=== PATIENT | female | born 1950 | race Caucasian/White ===

== ENCOUNTER 2016-08-27 11:35 | Day surgery (SDC) | payer BC ==
[~2016-08-27 11:35] MED LIST: Lactated Ringers 1,000 ML IV SCH; Lidocaine 1%/Sod Bicarbonate in NS 8.4% 1 ML Syringe PRN; Sodium Chloride 0.9% 10 ML Syringe FLUSH PRN
--- NOTE | 2016-08-27 12:14 | PCM.PREANE ---
Preanesthetic Assessment - Anesthesia/Transfusion/Family Hx Anesthesia History: No Prior Anesthesia Family History of Anesthesia Reaction: No Transfusion History: No Prior Transfusion(s) - Review of Systems General: No Symptoms Pulmonary: No Symptoms Cardiovascular: Dyspnea on Exertion Gastrointestinal: No symptoms Neurological: No Symptoms - Physical Assessment NPO Status Date: 08/27/16 NPO Status Time: 04:30 Pulse: 67 O2 Sat by Pulse Oximetry: 97 Respiratory Rate: 16 Blood Pressure: 163/83 Temperature: 36.7 C Height: 1.68 m Weight: 101.2 kg ASA Class: 2 Mental Status: Alert & Oriented x3 Airway Class: Mallampati = 2 Dentition: Reports: Dentures (upper) Thyro-Mental Finger Breadths: 3 Mouth Opening Finger Breadths: 3 ROM/Head Extension: Full Lungs: Clear to auscultation, Normal respiratory effort Cardiovascular: Regular Rate, Regular Rhythm - Lab Values: on chart - Imaging/EKG Impressions: EKG on chart - Allergies Allergies/Adverse Reactions: Allergies Allergy/AdvReac Type Severity Reaction Status Date / Time celecoxib [From Celebrex] Allergy Anaphylactic Verified 08/26/16 15:51 Shock nylon Allergy Itching Verified 08/26/16 15:51 prednisone Allergy Anaphylactic Verified 08/26/16 15:51 Shock Sulfa (Sulfonamide Allergy Anaphylactic Verified 08/26/16 15:51 Antibiotics) Shock amlodipine [From Norvasc] AdvReac palpitation Verified 08/26/16 16:33 s Fish Containing Products AdvReac Nausea and Verified 08/26/16 16:33 Vomiting - Anesthesia Plan Pre-Op Medication Ordered: Beta Iram Beta Iram: Atenolol Med Last Dose Date: 08/27/16 Med Last Dose Time: 08:00 - Acknowledgements Anesthesia Type Planned: MAC Pt an Appropriate Candidate for the Planned Anesthesia: Yes Alternatives and Risks of Anesthesia Discussed w Pt/Guardian: Yes Pt/Guardian Understands and Agrees with Anesthesia Plan: Yes PreAnesthesia Questionnaire Cardiovascular History: Reports: Heart murmur, High cholesterol, Hypertension Respiratory History: Reports: None Gastrointestinal History: Reports: Colon polyp, Hemorrhoids Genitourinary History: Reports: Renal calculus (2011), Other (see below) Other Genitourinary History: UTI, stress urinary incontinence SKEIN DYER History: Reports: Other (see below) Other OB/BYN History: uterine fibroid, atrophic vaginitis Neurological History: Reports: None Psychiatric History: Reports: None Endocrine/Metabolic History: Reports: Hypothyroidism Hematologic History: Reports: None Immunologic History: Reports: None Oncologic (Cancer) History: Reports: None Dermatologic History: Reports: None - Past Surgical History Head Surgeries/Procedures: Reports: None HEENT Surgical History: Reports: Tonsillectomy GI Surgical History: Reports: Colonoscopy, Other (see below) Other GI Surgeries/Procedures: sigmoidoscopy Female Surgical History: Reports: Hysterectomy Musculoskeletal Surgical History: Reports: Other (see below) Other Musculoskeletal Surgeries/Procedures:: carpal tunnel surgery, left total knee replacement - SUBSTANCE USE Smoking Status *Q: Never Smoker Tobacco Use Within Last Twelve Months: No Second Hand Smoke Exposure: No Days Per Week of Alcohol Use: 0 Number of Drinks Per Day: 1 Total Drinks Per Week: 0 - HOME MEDS Home Medications: Home Meds Acetaminophen [Tylenol Extra Strength] 1 - 2 tab PO Q6H PRN 08/26/16 [History] Atenolol [Atenolol] 50 mg PO DAILY 08/26/16 [History] Docusate Sodium [Colace] 100 mg PO DAILY 08/26/16 [History] Hydrochlorothiazide 12.5 mg PO DAILY 08/26/16 [History] Ibuprofen 1 - 3 cap PO Q6H 08/26/16 [History] Lactobacillus Acidophilus [Probiotic] 1 cap PO DAILY 08/26/16 [History] Levothyroxine [Synthroid] 100 mcg PO DAILY 08/26/16 [History] Pravastatin Sodium [Pravastatin Sodium] 20 mg PO DAILY 08/26/16 [History] Ramipril [Altace] 10 mg PO DAILY 08/26/16 [History] Sennosides [Senna] 1 - 2 tab PO DAILY PRN 08/26/16 [History] traMADol HCl [Tramadol HCl] 50 mg PO Q6H PRN 08/26/16 [History] - CURRENT (IN HOUSE) MEDS Current Meds: Current Medications Lactated Ringer's (Ringers, Lactated) 1,000 mls @ 125 mls/hr IV ASDIRECTED MARRY Stop: 08/27/16 23:00 Last Admin: 08/27/16 12:00 Dose: 125 mls/hr Lidocaine/Sodium Bicarbonate (Buffered Lidocaine 1% In Ns 8.4%) 0.25 ml .XX ONETIME PRN PRN Reason: Prior to IV Start Stop: 08/27/16 18:00 Last Admin: 08/27/16 12:00 Dose: 0.25 ml Sodium Chloride (Saline Flush) 10 ml FLUSH ASDIRECTED PRN PRN Reason: Keep Vein Open Stop: 08/27/16 18:00
[2016-08-27] MEDS ORDERED: Bacitracin Oint 15 GM Tube ONE (12:30)
[2016-08-27] MEDS ORDERED: Lidocaine 1% with EPINEPHrine 1:100,000 20 ML MDV ONE (12:30)
[2016-08-27] MEDS ORDERED: Bupivacaine 0.5%/EPINEPHrine 1:200,000 50 ML MDV ONE (12:30)
[2016-08-27] MEDS ORDERED: Lidocaine 1% 4 ML ONE (13:34)
[2016-08-27] MEDS ORDERED: fentaNYL 100 MCG/2 ML SDV ONE (13:34)
[2016-08-27] MEDS ORDERED: Propofol 200 MG/20 ML SDV ONE ×3 (13:34→14:47)
[2016-08-27] MEDS ORDERED: Lactated Ringers 1,000 ML ONE (14:22)
--- NOTE | 2016-08-27 14:58 | PCM.OPNOTE ---
- General Post-Op/Procedure Note Date of Surgery/Procedure: 08/27/16 Operative Procedure(s): Excision of multiple skin lesions, high-risk screening colonoscopy with hot snare polypectomy Pre Op Diagnosis: Multiple skin lesions, family history of melanoma, family history of colon cancer in brother and mother Post-Op Diagnosis: Multiple skin lesions, melanosis coli, mild diverticulosis, transverse colon polyp Anesthesia Technique: MAC Primary Surgeon: Elly Bettencourt Anesthesia Provider: Harry Delvalle Bit Sharpener: Jessica Sue Pathology: 1. Upper back lesion 2. Left upper chest lesions x2 3. Abdominal wall skin lesion 4. Transverse colon polyp Fluid Replacement, Intraop: 1,800 (mL crystalloid ) EBL in mLs: 5 Complications: None Condition: Good Free Text/Narrative:: INDICATION FOR PROCEDURE: The patient is a 65-year-old female who was referred to me by Dr. Kostas Wynne for evaluation for colonoscopy and removal of skin lesions. The patient has family history of colon cancer in two first degree relatives and a family history of melanoma in a first degree relative. Performing a high risk screening colonoscopy with excision of skin lesions and the associated risks of the procedure had been discussed with the patient. The patient found these risks acceptable and agreed to proceed. DESCRIPTION OF PROCEDURE: The patient was taken to the operating room and placed in the left lateral decubitus position. The patient's upper back lesion was initially excised. The area was prepped with chlorhexidine. Local anesthetic was injected after draping the area. An elliptical incision was then made excising the lesion and a small margin of surrounding tissue. The lesion measured approximately 0.8 cm x 0.5 cm. The ellipse measured 2 cm x 1 cm. Undermining was performed using a scalpel, measuring 1 cm circumferentially. The skin was then reapproximated using interrupted Ethilon suture. Attention was then turned to the patient's anterior chest lesions that were adjacent to one another. Both had a benign appearance. One appear more consistent with a skin tag. The area was prepped chlorhexidine. Local anesthetic was injected under both the lesions which were removed using a scalpel with less than 1 mm of surrounding normal tissue. They were sent as specimen in one container. Each lesion measured about 1 cm in size and was amputated just beneath its base. The excision sites were reapproximated using chromic suture. Finally, attention was then turned to a skin lesion present on the patient's upper abdomen. The area was prepped with chlorhexidine. The lesion which measured about 1 cm was then sharply excised, after injecting local anesthetic, with a scalpel. The skin was then reapproximated using chromic suture. Bacitracin and Band-Aids were applied over all of the areas of excision. After induction of adequate sedation, a digital rectal exam was performed which was unremarkable. An adult Olympus colonoscope was inserted into the rectum and guided under direct visualization to the appendiceal orifice and ileocecal valve. The scope was then slowly withdrawn through the colon. The quality of the prep was excellent. There was no evidence of angiodysplasias. There were very few small diverticulum in the sigmoid colon. There was mild melanosis coli. There was a small sessile polyp in the transverse colon which was removed using cold forceps. The scope was withdrawn into the rectum and retroflexed. There was no significant prominence of the patient's internal hemorrhoids. The scope was straightened, the colon was desufflated, and the scope was withdrawn. The patient was awakened from sedation and transferred to the recovery room in stable condition having tolerated the procedure well. POSTOPERATIVE PLAN: I discussed with the patient's daughter my intraoperative findings and recommendations. Due to the history of melanoma in her daughter and multiple pigmented skin lesions, I would recommend Dermatology referral for a full body skin check and this has been placed. We will send a letter regarding her pathology and timing of her next colonoscopy.
[2016-08-27 15:58] VITALS: BP 144/70
== END 2016-08-27 15:45 | disposition home or self-care (01) ==
LOC: JD.SDS 11:35
PROVIDERS: ATTEND Surgery
DX: D12.3 Benign neoplasm of transverse colon (principal); L82.1 Other seborrheic keratosis; L91.8 Other hypertrophic disorders of the skin; D23.5 Other benign neoplasm of skin of trunk; K64.4 Residual hemorrhoidal skin tags; E78.2 Mixed hyperlipidemia; I10 Essential (primary) hypertension; E03.9 Hypothyroidism, unspecified; K63.89 Other specified diseases of intestine; K57.30 Diverticulosis of large intestine without perforation or abscess without bleeding; Z88.2 Allergy status to sulfonamides; Z88.8 Allergy status to other drugs, medicaments and biological substances; Z91.013 Allergy to seafood; Z91.09 Other allergy status, other than to drugs and biological substances
CPT/HCPCS: 11404; 45385; 88305; A9270; J3010; J7120; 00400; J2704

== ENCOUNTER 2018-06-28 07:45 | Inpatient (IN) | payer OTHER, BC ==
[~2018-06-28 07:45] MED LIST changes: +Acetaminophen 325 MG Tab PO SCH; +EPINEPHrine 1 MG/ML SDV ONE; +Ketorolac 15 MG/ML SDV IVPUSH PRN; -Lactated Ringers 1,000 ML IV SCH; +Lidocaine 1%/Sod Bicarbonate in NS 8.4% 1 ML Syringe IDERM PRN; -Lidocaine 1%/Sod Bicarbonate in NS 8.4% 1 ML Syringe PRN; +Pregabalin 25 MG Cap PO SCH; +Ropivacaine 0.5% 5 MG/ML 30 ML SDV ONE; +oxyCODONE ER 10 MG TAB.ER PO SCH
[2018-06-28] MEDS: Lactated Ringers 1,000 ML IV SCH ×2 (08:30→12:11)
--- NOTE | 2018-06-28 08:47 | PCM.PREANE ---
Preanesthetic Assessment - Anesthesia/Transfusion/Family Hx Anesthesia History: Prior Anesthesia Without Reaction Family History of Anesthesia Reaction: No Transfusion History: No Prior Transfusion(s) - Review of Systems General: No Symptoms Pulmonary: No Symptoms Cardiovascular: Dyspnea on Exertion Gastrointestinal: No Symptoms Neurological: No Symptoms Other: Reports: Thyroid Problems (hhypothyroid) - Physical Assessment NPO Status Date: 06/27/18 NPO Status Time: 00:00 Pulse: 64 O2 Sat by Pulse Oximetry: 97 Respiratory Rate: 16 Blood Pressure: 163/45 Temperature: 37.3 C Vital Signs: Last Vital Signs Temp 37.3 C 06/28/18 08:05 Pulse 64 06/28/18 08:05 Resp 16 06/28/18 08:05 BP 163/75 H 06/28/18 08:05 Pulse Ox 97 06/28/18 08:05 Height: 1.68 m Weight: 103.419 kg ASA Class: 2 Mental Status: Alert & Oriented x3 Dentition: Reports: Dentures (top) Thyro-Mental Finger Breadths: 2 Mouth Opening Finger Breadths: 3 ROM/Head Extension: Full Lungs: Clear to Auscultation, Normal Respiratory Effort Cardiovascular: Regular Rate, Regular Rhythm - Lab Values: Laboratory Last Values MRSA (PCR) Negative 06/08/18 15:53 - Imaging/EKG Impressions: EKG SR on chart - Allergies Allergies/Adverse Reactions: Allergies Allergy/AdvReac Type Severity Reaction Status Date / Time celecoxib [From Celebrex] Allergy Anaphylactic Verified 06/27/18 18:32 Shock nylon Allergy Itching Verified 06/27/18 18:32 prednisone Allergy Anaphylactic Verified 06/27/18 18:32 Shock Sulfa (Sulfonamide Allergy Anaphylactic Verified 06/27/18 18:32 Antibiotics) Shock suture Allergy Itching Verified 06/27/18 18:32 amlodipine [From Norvasc] AdvReac palpitation Verified 06/27/18 18:32 s Fish Containing Products AdvReac Nausea and Verified 06/27/18 18:32 Vomiting - Anesthesia Plan Pre-Op Medication Ordered: Beta Iram Beta Iram: Acebutolol Med Last Dose Date: 06/28/18 Med Last Dose Time: 06:00 - Acknowledgements Anesthesia Type Planned: Spinal Pt an Appropriate Candidate for the Planned Anesthesia: Yes Alternatives and Risks of Anesthesia Discussed w Pt/Guardian: Yes Pt/Guardian Understands and Agrees with Anesthesia Plan: Yes PreAnesthesia Questionnaire HEENT History: Reports: Impaired Vision, Other (See Below) Other HEENT History: has upper denture, wears glasses Cardiovascular History: Reports: Heart Murmur, High Cholesterol, Hypertension Respiratory History: Reports: None Gastrointestinal History: Reports: Colon Polyp, Diverticulosis, Hemorrhoids, Other (See Below) Other Gastrointestinal History: melanosis coli Genitourinary History: Reports: Renal Calculus, Other (See Below) Other Genitourinary History: UTI, stress urinary incontinence, uterine fibroid, atrophic vaginitis [employer] History: Reports: Other (See Below) Other OB/BYN History: uterine fibroid, atrophic vaginitis Neurological History: Reports: None Psychiatric History: Reports: None Endocrine/Metabolic History: Reports: Hypothyroidism Hematologic History: Reports: None Immunologic History: Reports: None Oncologic (Cancer) History: Reports: None Dermatologic History: Reports: None - Past Surgical History Head Surgeries/Procedures: Reports: None HEENT Surgical History: Reports: Tonsillectomy Cardiovascular Surgical History: Reports: None Respiratory Surgical History: Reports: None GI Surgical History: Reports: Colonoscopy, Other (See Below) Other GI Surgeries/Procedures: sigmoidoscopy Female Surgical History: Reports: Hysterectomy Male Surgical History: Reports: None Endocrine Surgical History: Reports: None Musculoskeletal Surgical History: Reports: Carpal Tunnel, Knee Replacement, Other (See Below) Other Musculoskeletal Surgeries/Procedures:: carpal tunnel surgery, left total knee replacement Oncologic Surgical History: Reports: None Dermatological Surgical History: Reports: Other (See Below) - SUBSTANCE USE Smoking Status *Q: Never Smoker Tobacco Use Within Last Twelve Months: No Second Hand Smoke Exposure: No Days Per Week of Alcohol Use: 0 Number of Drinks Per Day: 0 Total Drinks Per Week: 0 Recreational Drug Use History: No - HOME MEDS Home Medications: Home Meds Acetaminophen [Tylenol Extra Strength] 1 - 2 tab PO Q6H PRN 08/26/16 [History] Atenolol 50 mg PO DAILY 08/26/16 [History] Docusate Sodium [Colace] 200 mg PO DAILY 08/26/16 [History] Hydrochlorothiazide 12.5 mg PO DAILY 08/26/16 [History] Ibuprofen 1 - 3 cap PO Q6H 08/26/16 [History] Lactobacillus Acidophilus [Probiotic] 1 cap PO DAILY 08/26/16 [History] Levothyroxine [Synthroid] 100 mcg PO DAILY 08/26/16 [History] Ramipril [Altace] 10 mg PO DAILY 08/26/16 [History] traMADol HCl [Tramadol HCl] 50 mg PO Q6H PRN 08/26/16 [History] Ketoconazole 1 dose TOP Q48H PRN 06/27/18 [History] Methylcellulose [Citrucel] 1,000 mg PO DAILY 06/27/18 [History] Rosuvastatin Calcium 20 mg PO DAILY 06/27/18 [History] Sennosides [Senna] 17.2 mg PO DAILY 06/27/18 [History] - CURRENT (IN HOUSE) MEDS Current Meds: Current Medications Acetaminophen (Tylenol) 975 mg PO ONETIME [facility] Stop: 06/28/18 14:00 Aspirin (Ecotrin) 325 mg PO BID MARRY Bisacodyl (Dulcolax) 5 mg PO DAILY PRN PRN Reason: Constipation Morphine Sulfate 8 mg/Epinephrine HCl 0.3 mg/Cefuroxime Sodium 750 mg/Sodium Chloride 28.9 ml 0 mg .XX ONETIME ONE Stop: 06/28/18 10:01 Cyclobenzaprine HCl (Flexeril) 10 mg PO TID PRN PRN Reason: Spasms Docusate Sodium (Colace) 100 mg PO BID MARRY Famotidine (Pepcid) 20 mg PO Q12H [facility] Lactated Ringer's (Ringers, Lactated) 1,000 mls @ 125 mls/hr IV ASDIRECTED [facility] Stop: 06/28/18 23:00 Cefazolin Sodium/Dextrose 2 gm (/ Premix) 50 mls @ 100 mls/hr IV Q8H [facility] Stop: 06/28/18 23:44 Lidocaine/Sodium Bicarbonate (Buffered Lidocaine 1% In Ns 8.4%) 0.25 ml IDERM ONETIME PRN PRN Reason: Prior to IV Start Stop: 06/28/18 18:00 Magnesium Hydroxide (Milk Of Magnesia) 30 ml PO BID PRN PRN Reason: Constipation Morphine Sulfate (Morphine) 2 mg IVPUSH Q2H PRN PRN Reason: Breakthrough Pain Naloxone HCl (Narcan) 0.1 mg IVPUSH Q5M PRN PRN Reason: Oversedation Ondansetron HCl (Zofran) 4 mg IVPUSH Q6H PRN PRN Reason: Nausea/Vomiting Oxycodone HCl (Oxycontin) 10 mg PO ONETIME [facility] Stop: 06/28/18 14:00 Oxycodone/Acetaminophen (Percocet 325-5 Mg) 1 - 2 tab PO Q4H PRN PRN Reason: Pain Pregabalin (Lyrica) 50 mg PO ONETIME [facility] Stop: 06/28/18 14:00 Senna (Senna) 8.6 mg PO BID PRN PRN Reason: Constipation Sodium Chloride (Saline Flush) 10 ml FLUSH ASDIRECTED PRN PRN Reason: Keep Vein Open Stop: 06/28/18 18:00 Discontinued Medications Bupivacaine HCl (Marcaine 0.25%) Confirm Administered Dose 30 ml .ROUTE .STK- MED ONE Stop: 06/28/18 08:38 Cefazolin Sodium (Ancef) Confirm Administered Dose 2 gm .ROUTE .STK-MED ONE Stop: 06/28/18 08:38 Epinephrine HCl (Adrenalin) Confirm Administered Dose 1 mg .ROUTE .STK-MED ONE Stop: 06/28/18 05:50 Iodine (Iodine 2% Mild Tincture) Confirm Administered Dose 30 ml .ROUTE .STK- MED ONE Stop: 06/28/18 08:38 Ropivacaine (Naropin 0.5%) Confirm Administered Dose 30 ml .ROUTE .STK-MED ONE Stop: 06/28/18 05:50 Tranexamic Acid (Cyklokapron) Confirm Administered Dose 1,000 mg .ROUTE .STK- MED ONE Stop: 06/28/18 08:37 Vancomycin HCl (Vancomycin) Confirm Administered Dose 1 gm .ROUTE .STK-MED ONE Stop: 06/28/18 08:37
[2018-06-28] MEDS ORDERED: Ondansetron 4 MG/2 ML SDV ONE (09:09)
[2018-06-28] MEDS ORDERED: fentaNYL 100 MCG/2 ML SDV ONE (09:10)
[2018-06-28] MEDS ORDERED: Midazolam 1 MG/ML 2 ML SDV ONE (09:10)
[2018-06-28] MEDS ORDERED: Propofol 200 MG/20 ML SDV ONE ×3 (09:10→11:17)
[2018-06-28] MEDS ORDERED: ceFAZolin 1 GM Vial ONE (09:11)
[2018-06-28] MEDS ORDERED: Lactated Ringers 1,000 ML ONE (10:24)
[2018-06-28] MEDS ORDERED: Lidocaine 1% 4 ML ONE (10:24)
[2018-06-28] MEDS: Bupivacaine 0.25% 30 ML SDV ONE ×2 (10:58→11:22)
[2018-06-28] MEDS: ceFAZolin 1 GM Vial ONE ×2 (10:59→11:20)
[2018-06-28] MEDS: Iodine/Sodium Iodide 2% Tincture 30 ML Bottle ONE ×2 (10:59→11:16)
[2018-06-28] MEDS: Morphine 8 MG, EPINEPHrine 0.3 MG, Cefuroxime 750 MG, Sodium Chloride 0.9% 28.9 ML ONE ×8 (11:00→11:23)
[2018-06-28] MEDS: Vancomycin 1 GM SDV ONE ×2 (11:01→11:25)
[2018-06-28] MEDS ORDERED: Magnesium Hydroxide 400 MG/5 ML Susp 30 ML Cup PO PRN (12:00)
[2018-06-28] MEDS ORDERED: Ondansetron 4 MG/2 ML SDV IVPUSH PRN (12:00)
[2018-06-28] MEDS ORDERED: Morphine 2 MG/ML Syringe IVPUSH PRN (12:00)
[2018-06-28] MEDS ORDERED: Bisacodyl 5 MG Tab PO PRN (12:00)
[2018-06-28] MEDS ORDERED: fentaNYL 100 MCG/2 ML SDV IVPUSH PRN (12:00)
[2018-06-28] MEDS ORDERED: Naloxone 0.4 MG/ML SDV IVPUSH PRN (12:00)
[2018-06-28] MEDS ORDERED: Sennosides 8.6 MG Tab PO PRN (12:00)
--- NOTE | 2018-06-28 12:02 | PCM.POSTAN ---
POST ANESTHESIA ASSESSMENT - MENTAL STATUS Mental Status: Alert, Oriented - VITAL SIGNS Pulse Rate: 66 SaO2: 94 Resp Rate: 10 Blood Pressure: 110/63 Temperature: 36.6 C - RESPIRATORY Respiratory Status: Respiratory Rate WNL, Airway Patent, O2 Saturation Stable, Supplemental Oxygen - CARDIOVASCULAR CV Status: Pulse Rate WNL, Blood Pressure Stable - GASTROINTESTINAL GI Status: No Symptoms - PAIN Pain Score: 0 - POST OP HYDRATION Hydration Status: Adequate & Stable - OBSERVATIONS Free Text/Narrative:: no anesthesia complications noted
--- NOTE | 2018-06-28 12:57 | CR ---
Right knee: AP and lateral views of the right knee were obtained. Comparison: Previous right knee exam of 05/05/11. Knee prosthesis is seen. Components are aligned. Underlying bony structures are intact. No fracture or other abnormality is seen. Incidental soft tissue air is noted. Impression: 1. Satisfactory appearance of recently placed right knee prosthesis. Diagnostic code #2
[2018-06-28] MEDS: Acetaminophen/oxyCODONE 325-5 MG Tab PO PRN ×4 (13:56→21:42)
[2018-06-28] MEDS ORDERED: KETOCONAZOLE TOP PRN (14:45)
[2018-06-28] MEDS: ceFAZolin 2 GM in Premix Bag 1 BAG IV SCH (17:18)
--- NOTE | 2018-06-28 17:30 | PCM.CONS ---
H&P History of Present Illness - General Date of Service: 06/28/18 Admit Problem/Dx: Admission Diagnosis/Problem Admission Diagnosis/Problem Osteoarthritis of knee Source of Information: Patient, Provider History Limitations: Reports: No Limitations - History of Present Illness Initial Comments - Free Text/Narative: Amee is an 67 yo female patient of Dr. Mcclendon who is post-operative day 0 of R TKA. Hospital medicine was consulted for post-operative medical care. At this time she is stable. Pain is controlled; 6/10 at its worst. She denies any chest pain, shortness of breath, palpitations, nausea, vomiting. She carries a history of: HTN, HLD, Hypothyroidism, Renal stone, Stress incontinence, Diverticulosis, Cardiac Murmur. She is a full code. Her PCP is Dr. Wynne. Not a smoker. Right Knee Pain Score (Numeric/FACES): 6 - Related Data Allergies/Adverse Reactions: Allergies Allergy/AdvReac Type Severity Reaction Status Date / Time celecoxib [From Celebrex] Allergy Anaphylactic Verified 06/27/18 18:32 Shock nylon Allergy Itching Verified 06/27/18 18:32 prednisone Allergy Anaphylactic Verified 06/27/18 18:32 Shock Sulfa (Sulfonamide Allergy Anaphylactic Verified 06/27/18 18:32 Antibiotics) Shock suture Allergy Itching Verified 06/27/18 18:32 amlodipine [From Norvasc] AdvReac palpitation Verified 06/27/18 18:32 s Fish Containing Products AdvReac Nausea and Verified 06/27/18 18:32 Vomiting Home Medications: Home Meds Atenolol 50 mg PO DAILY 08/26/16 [History] Docusate Sodium [Colace] 200 mg PO DAILY 08/26/16 [History] Hydrochlorothiazide 12.5 mg PO DAILY 08/26/16 [History] Lactobacillus Acidophilus [Probiotic] 1 cap PO DAILY 08/26/16 [History] Levothyroxine [Synthroid] 100 mcg PO DAILY 08/26/16 [History] Ramipril [Altace] 10 mg PO DAILY 08/26/16 [History] Ketoconazole 1 dose TOP Q48H PRN 06/27/18 [History] Rosuvastatin Calcium 20 mg PO DAILY 06/27/18 [History] Sennosides [Senna] 17.2 mg PO DAILY 06/27/18 [History] Acetaminophen/oxyCODONE [Percocet 325-5 MG] 1 - 2 tab PO Q6H PRN #60 tablet [Rx] Aspirin [Aspirin EC] 325 mg PO BID #84 tablet. 06/28/18 [Rx] Bisacodyl [Dulcolax] 5 mg PO DAILY PRN tablet 06/28/18 [Rx] Cyclobenzaprine [Flexeril] 10 mg PO TID PRN #40 tablet 06/28/18 [Rx] Famotidine [Pepcid] 20 mg PO Q12H tablet 06/28/18 [Rx] Magnesium Hydroxide [Milk of Magnesia] 30 ml PO BID PRN cup 06/28/18 [Rx] Past Medical History HEENT History: Reports: Impaired Vision, Other (See Below) Other HEENT History: has upper denture, wears glasses Cardiovascular History: Reports: Heart Murmur, High Cholesterol, Hypertension Respiratory History: Reports: None Gastrointestinal History: Reports: Colon Polyp, Diverticulosis, Hemorrhoids, Other (See Below) Other Gastrointestinal History: melanosis coli Genitourinary History: Reports: Renal Calculus, Other (See Below) Other Genitourinary History: UTI, stress urinary incontinence, uterine fibroid, atrophic vaginitis [employer] History: Reports: Other (See Below) Other OB/BYN History: uterine fibroid, atrophic vaginitis Neurological History: Reports: None Psychiatric History: Reports: None Endocrine/Metabolic History: Reports: Hypothyroidism Hematologic History: Reports: None Immunologic History: Reports: None Oncologic (Cancer) History: Reports: None Dermatologic History: Reports: None - Infectious Disease History Infectious Disease History: Reports: Chicken Pox, Measles, Mumps - Past Surgical History Head Surgeries/Procedures: Reports: None HEENT Surgical History: Reports: Tonsillectomy Cardiovascular Surgical History: Reports: None Respiratory Surgical History: Reports: None GI Surgical History: Reports: Colonoscopy, Other (See Below) Other GI Surgeries/Procedures: sigmoidoscopy Female Surgical History: Reports: Hysterectomy Male Surgical History: Reports: None Endocrine Surgical History: Reports: None Musculoskeletal Surgical History: Reports: Carpal Tunnel, Knee Replacement, Other (See Below) Other Musculoskeletal Surgeries/Procedures:: carpal tunnel surgery, left total knee replacement Oncologic Surgical History: Reports: None Dermatological Surgical History: Reports: Other (See Below) Social & Family History - Family History Family Medical History: Noncontributory - Tobacco Use Smoking Status *Q: Never Smoker Second Hand Smoke Exposure: No - Caffeine Use Caffeine Use: Reports: Coffee, Soda - Alcohol Use Days Per Week of Alcohol Use: 0 Number of Drinks Per Day: 0 Total Drinks Per Week: 0 - Recreational Drug Use Recreational Drug Use: No H&P Review of Systems - Review of Systems: Review Of Systems: See Below General: Reports: No Symptoms. Denies: Fever, Chills HEENT: Reports: No Symptoms Pulmonary: Reports: No Symptoms. Denies: Shortness of Breath, Cough Cardiovascular: Reports: No Symptoms. Denies: Chest Pain Gastrointestinal: Reports: No Symptoms. Denies: Abdominal Pain, Diarrhea, Nausea, Vomiting Genitourinary: Reports: No Symptoms Musculoskeletal: Reports: No Symptoms Skin: Reports: No Symptoms Psychiatric: Reports: No Symptoms Neurological: Reports: No Symptoms Hematologic/Lymphatic: Reports: No Symptoms Immunologic: Reports: No Symptoms Exam - Exam Exam: See Below - Vital Signs Vital Signs: Last Vital Signs Temp 97.2 F 06/28/18 12:45 Pulse 66 06/28/18 12:01 Resp 14 06/28/18 12:45 BP 137/74 06/28/18 12:45 Pulse Ox 92 L 06/28/18 12:45 Weight: 228 lb - Exam Quality Assessment: Supplemental Oxygen (1L NC), DVT Prophylaxis General: Alert, Oriented, Cooperative HEENT: Conjunctiva Clear, EACs Clear, EOMI, Hearing Intact, Mucosa Moist & [place] , Nares Patent, Normal Nasal Septum, Posterior Pharynx Clear, PERRLA Neck: Supple, Trachea Midline, 2 Lungs: Clear to Auscultation, Normal Respiratory Effort Cardiovascular: Regular Rate, Regular Rhythm GI/Abdominal Exam: Normal Bowel Sounds, Soft, Non-Tender, No Organomegaly, No Distention, No Abnormal Bruit, No Mass, Pelvis Stable (Female) Exam: Deferred Rectal (Female) Exam: Deferred Back Exam: Normal Inspection Extremities: Normal Inspection, Non-Tender, No Pedal Edema, Normal Capillary Refill, Limited Range of Motion Peripheral Pulses: 2+: Posterior Tibial (L), Posterior Tibial (R), Dorsalis Pedis (L), Dorsalis Pedis (R) Skin: Warm, Dry, Intact, Other (bandage dry and intact) Neurological: Cranial Nerves Intact (grossly), Strength Equal Bilateral Neuro Extensive - Mental Status: Alert, Oriented x3, Normal Mood/Affect, Normal Cognition, Memory Intact Psychiatric: Alert, Normal Affect, Normal Mood - Patient Data Lab Results Last 24 hrs: Laboratory Results - last 24 hr 06/28/18 Range/Units 08:20 APTT 32 H (24-31) SECONDS Consult PN Assessment/Plan POD#: 0 Procedures: Procedures CARDIOVASCULAR STRESS TEST (06/18/18) COLONOSCOPY W/LESION REMOVAL (08/27/16) EXC TR-EXT B9+CARLOS ENRIQUE 3.1-4 CM (08/27/16) HT MUSCLE IMAGE SPECT MULT (06/18/18) TISSUE EXAM BY PATHOLOGIST (08/27/16) (1) S/P total knee arthroplasty SNOMED Code(s): 8849663535980, 912659862, 0360266654630 Code(s): Z96.659 - PRESENCE OF UNSPECIFIED ARTIFICIAL KNEE JOINT Current Visit: Yes Qualifiers: Laterality: right Qualified Code(s): Z96.651 - Presence of right artificial knee joint Problem List Initiated/Reviewed/Updated: Yes Plan: I/P: Acute: S/P R total knee arthoplasty- post-operative day 0 -DVT prophylaxis and pain management per primary care team -PT/OT -IS/RT -Monitor oxygen saturation -Titrate oxygen as needed -Vital signs stable -Monitor labs: -Hgb 12.4 -GFR 84 Osteoarthritis -Pain management per primary team Chronic: HTN HLD Hypothyroidism Renal stone Stress incontinence Diverticulosis Cardiac Murmur Plan: CM for discharge planning Routine AM labs GI/DVT/PE prophylaxis Home medications as indicated Other orders as listed above Routine AM labs She is a full code. PCP is Dr. Wynne. Thank you for allowing us to participate in the care of this patient!
[2018-06-28] MEDS ORDERED: Sennosides 8.6 MG Tab PO SCH (18:45)
[2018-06-28] MEDS ORDERED: Docusate Sodium 100 MG Cap PO SCH ×2 (18:45→21:00)
[2018-06-28] MEDS: Docusate Sodium 100 MG Cap PO SCH (19:55)
[2018-06-28] MEDS: Cyclobenzaprine 10 MG Tab PO PRN (19:55)
[2018-06-28] MEDS: Sennosides 8.6 MG Tab PO SCH (19:55)
[2018-06-28] MEDS: Famotidine 20 MG Tab PO SCH (21:41)
[2018-06-29] MEDS: ceFAZolin 2 GM in Premix Bag 1 BAG IV SCH ×2 (00:46→09:54)
[2018-06-29] MEDS: Acetaminophen/oxyCODONE 325-5 MG Tab PO PRN ×3 (01:08→09:01)
[2018-06-29] MEDS: Cyclobenzaprine 10 MG Tab PO PRN (04:55)
[2018-06-29] MEDS ORDERED: Levothyroxine 100 MCG Tab PO SCH (06:00)
--- NOTE | 2018-06-29 06:57 | PCM.CONSN ---
- General Info Date of Service: 06/29/18 Admission Dx/Problem (Free Text): Admission Diagnosis/Problem Admission Diagnosis/Problem Osteoarthritis of knee Functional Status: Reports: Pain Controlled, Tolerating Diet, Ambulating, Urinating, Incentive Spirometry. Denies: New Symptoms - Review of Systems General: Reports: No Symptoms. Denies: Fever, Malaise, Chills HEENT: Reports: No Symptoms. Denies: Headaches, Sore Throat Pulmonary: Reports: No Symptoms. Denies: Shortness of Breath, Pleuritic Chest Pain, Cough, Sputum, Wheezing Cardiovascular: Reports: No Symptoms. Denies: Chest Pain, Palpitations, Dyspnea on Exertion, Lightheadedness Gastrointestinal: Reports: No Symptoms. Denies: Abdominal Pain, Constipation, Diarrhea, Nausea, Vomiting Genitourinary: Reports: No Symptoms. Denies: Pain Musculoskeletal: Reports: Leg Pain Skin: Reports: No Symptoms. Denies: Cyanosis Neurological: Reports: No Symptoms. Denies: Confusion Psychiatric: Reports: No Symptoms - Patient Data Vitals - Most Recent: Last Vital Signs Temp 98.6 F 06/29/18 04:18 Pulse 79 06/29/18 04:18 Resp 18 06/29/18 04:18 BP 130/49 L 06/29/18 04:18 Pulse Ox 89 L 06/29/18 04:18 Weight - Most Recent: 230 lb 14.4 oz I&O - Last 24 Hours: Intake & Output 06/28/18 06/28/18 06/29/18 14:59 22:59 06:59 Intake Total 590 155 8395 Output Total 75 700 Balance 185 800 450 Lab Results Last 24 Hours: Laboratory Results - last 24 hr 06/28/18 06/29/18 Range/Units 08:20 06:15 WBC 8.22 (3.98-10.04) K/mm3 RBC 3.96 L (3.98-5.22) M/mm3 Hgb 11.4 (11.2-15.7) gm/L Hct 35.4 (34.1-44.9) % MCV 89.4 (79.4-94.8) fl MCH 28.8 (25.6-32.2) pg MCHC 32.2 (32.2-35.5) g/dl RDW Std Deviation 41.4 (36.4-46.3) fL Plt Count 196 (182-369) K/mm3 MPV 9.4 (9.4-12.3) fl APTT 32 H (24-31) SECONDS Med Orders - Current: Current Medications Aspirin (Ecotrin) 325 mg PO BID [facility] Atenolol (Tenormin) 50 mg PO DAILY [facility] Bisacodyl (Dulcolax) 5 mg PO DAILY PRN PRN Reason: Constipation Cyclobenzaprine HCl (Flexeril) 10 mg PO TID PRN PRN Reason: Spasms Last Admin: 06/29/18 04:55 Dose: 10 mg Docusate Sodium (Colace) 200 mg PO DAILY [facility] Last Admin: 06/28/18 19:55 Dose: 200 mg Famotidine (Pepcid) 20 mg PO Q12H [facility] Last Admin: 06/28/18 21:41 Dose: 20 mg Hydrochlorothiazide (Hydrochlorothiazide) 12.5 mg PO DAILY [facility] Cefazolin Sodium/Dextrose 2 gm (/ Premix) 50 mls @ 100 mls/hr IV Q8H [facility] Stop: 06/29/18 09:44 Last Admin: 06/29/18 00:46 Dose: 100 mls/hr Levothyroxine Sodium (Synthroid) 100 mcg PO ACBREAKFAST [facility] Last Admin: 06/29/18 06:11 Dose: 100 mcg Lisinopril (Prinivil) 20 mg PO DAILY [facility] Magnesium Hydroxide (Milk Of Magnesia) 30 ml PO BID PRN PRN Reason: Constipation Morphine Sulfate (Morphine) 2 mg IVPUSH Q2H PRN PRN Reason: Breakthrough Pain Naloxone HCl (Narcan) 0.1 mg IVPUSH Q5M PRN PRN Reason: Oversedation Ondansetron HCl (Zofran) 4 mg IVPUSH Q6H PRN PRN Reason: Nausea/Vomiting Last Admin: 06/28/18 13:56 Dose: 4 mg Oxycodone/Acetaminophen (Percocet 325-5 Mg) 1 - 2 tab PO Q4H PRN PRN Reason: Pain Last Admin: 06/29/18 04:54 Dose: 1 tab Rosuvastatin Calcium (Crestor) 20 mg PO DAILY [facility] Saccharomyces Boulardii (Florastor) 250 mg PO DAILY [facility] Senna (Senna) 17.2 mg PO DAILY [facility] Last Admin: 06/28/18 19:55 Dose: 17.2 mg Discontinued Medications Acetaminophen (Tylenol) 975 mg PO ONETIME [facility] Stop: 06/28/18 14:00 Last Admin: 06/28/18 08:55 Dose: 975 mg Bupivacaine HCl (Marcaine 0.25%) Confirm Administered Dose 30 ml .ROUTE .STK- MED ONE Stop: 06/28/18 08:38 Last Admin: 06/28/18 11:22 Dose: 30 ml Cefazolin Sodium (Ancef) Confirm Administered Dose 2 gm .ROUTE .STK-MED ONE Stop: 06/28/18 08:38 Last Admin: 06/28/18 11:20 Dose: 2 gm Cefazolin Sodium (Ancef) Confirm Administered Dose 2 gm .ROUTE .STK-MED ONE Stop: 06/28/18 09:12 Morphine Sulfate 8 mg/Epinephrine HCl 0.3 mg/Cefuroxime Sodium 750 mg/Sodium Chloride 28.9 ml 0 mg .XX ONETIME ONE Stop: 06/28/18 10:01 Last Admin: 06/28/18 11:23 Dose: 758.3 mg Docusate Sodium (Colace) 100 mg PO BID [facility] Epinephrine HCl (Adrenalin) Confirm Administered Dose 1 mg .ROUTE .STK-MED ONE Stop: 06/28/18 05:50 Fentanyl (Sublimaze) Confirm Administered Dose 100 mcg .ROUTE .STK-MED ONE Stop: 06/28/18 09:11 Fentanyl (Sublimaze) 50 mcg IVPUSH Q5M PRN PRN Reason: Pain Stop: 06/28/18 16:00 Lactated Ringer's (Ringers, Lactated) 1,000 mls @ 125 mls/hr IV ASDIRECTED [facility] Stop: 06/28/18 23:00 Last Admin: 06/28/18 12:11 Dose: 125 mls/hr Lidocaine HCl (Xylocaine-Mpf 1%) Confirm Administered Dose 4 mls @ as directed .ROUTE .STK-MED ONE Stop: 06/28/18 10:25 Lactated Ringer's (Ringers, Lactated) Confirm Administered Dose 1,000 mls @ as directed .ROUTE .STK-MED ONE Stop: 06/28/18 10:25 Iodine (Iodine 2% Mild Tincture) Confirm Administered Dose 30 ml .ROUTE .STK- MED ONE Stop: 06/28/18 08:38 Last Admin: 06/28/18 11:16 Dose: 18 ml Lidocaine/Sodium Bicarbonate (Buffered Lidocaine 1% In Ns 8.4%) 0.25 ml IDERM ONETIME PRN PRN Reason: Prior to IV Start Stop: 06/28/18 18:00 Last Admin: 06/28/18 08:30 Dose: 0.25 ml Midazolam HCl (Versed 1 Mg/Ml) Confirm Administered Dose 2 mg .ROUTE .STK-MED ONE Stop: 06/28/18 09:11 Non-Formulary Medication (Ketoconazole) 1 dose TOP Q48H PRN PRN Reason: skin complications Ondansetron HCl (Zofran) Confirm Administered Dose 4 mg .ROUTE .STK-MED ONE Stop: 06/28/18 09:10 Oxycodone HCl (Oxycontin) 10 mg PO ONETIME [facility] Stop: 06/28/18 14:00 Last Admin: 06/28/18 08:55 Dose: 10 mg Pregabalin (Lyrica) 50 mg PO ONETIME [facility] Stop: 06/28/18 14:00 Last Admin: 06/28/18 08:55 Dose: 50 mg Propofol (Diprivan 20 Ml) Confirm Administered Dose 200 mg .ROUTE .STK-MED ONE Stop: 06/28/18 09:11 Propofol (Diprivan 20 Ml) Confirm Administered Dose 200 mg .ROUTE .STK-MED ONE Stop: 06/28/18 10:51 Propofol (Diprivan 20 Ml) Confirm Administered Dose 200 mg .ROUTE .STK-MED ONE Stop: 06/28/18 11:18 Ropivacaine (Naropin 0.5%) Confirm Administered Dose 30 ml .ROUTE .STK-MED ONE Stop: 06/28/18 05:50 Senna (Senna) 8.6 mg PO BID PRN PRN Reason: Constipation Sodium Chloride (Saline Flush) 10 ml FLUSH ASDIRECTED PRN PRN Reason: Keep Vein Open Stop: 06/28/18 18:00 Tranexamic Acid (Cyklokapron) Confirm Administered Dose 1,000 mg .ROUTE .STK- MED ONE Stop: 06/28/18 08:37 Last Admin: 06/28/18 11:28 Dose: 1,000 mg Vancomycin HCl (Vancomycin) Confirm Administered Dose 1 gm .ROUTE .STK-MED ONE Stop: 06/28/18 08:37 Last Admin: 06/28/18 11:01 Dose: 1 gm - Exam Quality Assessment: DVT Prophylaxis General: Alert, Oriented, Cooperative, No Acute Distress HEENT: Pupils Equal, Pupils Reactive, EOMI, Mucous Membr. Moist/[place] Neck: Supple, Trachea Midline, No JVD Lungs: Clear to Auscultation, Normal Respiratory Effort Cardiovascular: Regular Rate, Regular Rhythm GI/Abdominal Exam: Normal Bowel Sounds, Soft, Non-Tender, No Distention, No Abnormal Bruit (Female) Exam: Deferred Back Exam: Normal Inspection, Full Range of Motion Extremities: No Pedal Edema, Normal Capillary Refill, Leg Pain, Limited Range of Motion, Other (Bandage in place on right leg. Cooling pack in place. ) Peripheral Pulses: 2+: Radial (L), Radial (R), Dorsalis Pedis (L), Dorsalis Pedis (R) Skin: Warm, Dry, Intact Wound/Incisions: Dressing Dry and Intact, No Drainage Neurological: No New Focal Deficit Psy/Mental Status: Alert, Normal Affect, Normal Mood Consult PN Assessment/Plan POD#: 1 Procedures: Procedures CARDIOVASCULAR STRESS TEST (06/18/18) COLONOSCOPY W/LESION REMOVAL (08/27/16) EXC TR-EXT B9+CARLOS ENRIQUE 3.1-4 CM (08/27/16) HT MUSCLE IMAGE SPECT MULT (06/18/18) TISSUE EXAM BY PATHOLOGIST (08/27/16) (1) S/P total knee arthroplasty SNOMED Code(s): 4205997490829, [id number], [id number] Code(s): Z96.659 - PRESENCE OF UNSPECIFIED ARTIFICIAL KNEE JOINT Current Visit: Yes Qualifiers: Laterality: right Qualified Code(s): Z96.651 - Presence of right artificial knee joint Problem List Initiated/Reviewed/Updated: Yes Plan: I/P: Acute: S/P R total knee arthoplasty- post-operative day 1 -DVT prophylaxis and pain management per primary care team -PT/OT -IS/RT -Monitor oxygen saturation -Titrate oxygen as needed -Vital signs stable -Monitor labs: -Hgb 12.4; Now 11.4 -GFR 84; Now >60 Osteoarthritis -Pain management per primary team Chronic: HTN HLD Hypothyroidism Renal stone Stress incontinence Diverticulosis Cardiac Murmur Plan: CM for discharge planning Routine AM labs GI/DVT/PE prophylaxis Home medications as indicated Other orders as listed above Routine AM labs From a hospitalist standpoint Amee is doing very well. Her pain is controlled and she is up ambulating and working with therapies. Labs and vital signs remain stable. She has urinated and is off of oxygen. She is cleared for discharge pending primary team and PT/OT agreement. She is a full code. PCP is Dr. Wynne.
--- NOTE | 2018-06-29 08:01 | PCM.SURGPN ---
- General Info Date of Service: 06/29/18 POD#: 1 Functional Status: Reports: Pain Controlled, Tolerating Diet, Ambulating, Urinating, Incentive Spirometry, Other (Nurse states pt has been doing very well.) - Patient Data Vitals - Most Recent: Last Vital Signs Temp 98.2 F 06/29/18 07:41 Pulse 73 06/29/18 07:41 Resp 13 06/29/18 07:41 BP 134/59 L 06/29/18 07:41 Pulse Ox 95 06/29/18 07:41 Weight - Most Recent: 230 lb 14.4 oz I&O - Last 24 Hours: Intake & Output 06/28/18 06/29/18 06/29/18 22:59 06:59 14:59 Intake Total 800 1150 Output Total 700 Balance 800 450 Lab Results Last 24 Hrs: Laboratory Results - last 24 hr 06/28/18 06/29/18 06/29/18 Range/Units 08:20 06:15 06:15 WBC 8.22 (3.98-10.04) K/mm3 RBC 3.96 L (3.98-5.22) M/mm3 Hgb 11.4 (11.2-15.7) gm/L Hct 35.4 (34.1-44.9) % MCV 89.4 (79.4-94.8) fl MCH 28.8 (25.6-32.2) pg MCHC 32.2 (32.2-35.5) g/dl RDW Std Deviation 41.4 (36.4-46.3) fL Plt Count 196 (182-369) K/mm3 MPV 9.4 (9.4-12.3) fl APTT 32 H (24-31) SECONDS Sodium 135 L (136-145) mEq/L Potassium 3.9 (3.5-5.1) mEq/L Chloride 101 (98-107) mEq/L Carbon Dioxide 29 (21-32) mEq/L Anion Gap 8.9 (5-15) BUN 13 (7-18) mg/dL Creatinine 0.9 (0.55-1.02) mg/dL Est Cr Clr Drug Dosing 57.56 mL/min Estimated GFR (MDRD) > 60 (>60) mL/min BUN/Creatinine Ratio 14.4 (14-18) Glucose 127 H (80-115) mg/dL Calcium 9.0 (8.5-10.1) mg/dL Total Bilirubin 0.6 (0.2-1.0) mg/dL AST 17 (15-37) U/L ALT 24 (14-59) U/L Alkaline Phosphatase 66 (46-116) U/L Total Protein 6.6 (6.4-8.2) g/dl Albumin 3.3 L (3.4-5.0) g/dl Globulin 3.3 gm/dL Albumin/Globulin Ratio 1.0 (1-2) Med Orders - Current: Current Medications Aspirin (Ecotrin) 325 mg PO BID [facility] Atenolol (Tenormin) 50 mg PO DAILY [facility] Bisacodyl (Dulcolax) 5 mg PO DAILY PRN PRN Reason: Constipation Cyclobenzaprine HCl (Flexeril) 10 mg PO TID PRN PRN Reason: Spasms Last Admin: 06/29/18 04:55 Dose: 10 mg Docusate Sodium (Colace) 200 mg PO DAILY [facility] Last Admin: 06/28/18 19:55 Dose: 200 mg Famotidine (Pepcid) 20 mg PO Q12H [facility] Last Admin: 06/28/18 21:41 Dose: 20 mg Hydrochlorothiazide (Hydrochlorothiazide) 12.5 mg PO DAILY [facility] Cefazolin Sodium/Dextrose 2 gm (/ Premix) 50 mls @ 100 mls/hr IV Q8H [facility] Stop: 06/29/18 09:44 Last Admin: 06/29/18 00:46 Dose: 100 mls/hr Levothyroxine Sodium (Synthroid) 100 mcg PO ACBREAKFAST [facility] Last Admin: 06/29/18 06:11 Dose: 100 mcg Lisinopril (Prinivil) 20 mg PO DAILY [facility] Magnesium Hydroxide (Milk Of Magnesia) 30 ml PO BID PRN PRN Reason: Constipation Morphine Sulfate (Morphine) 2 mg IVPUSH Q2H PRN PRN Reason: Breakthrough Pain Naloxone HCl (Narcan) 0.1 mg IVPUSH Q5M PRN PRN Reason: Oversedation Ondansetron HCl (Zofran) 4 mg IVPUSH Q6H PRN PRN Reason: Nausea/Vomiting Last Admin: 06/28/18 13:56 Dose: 4 mg Oxycodone/Acetaminophen (Percocet 325-5 Mg) 1 - 2 tab PO Q4H PRN PRN Reason: Pain Last Admin: 06/29/18 04:54 Dose: 1 tab Rosuvastatin Calcium (Crestor) 20 mg PO DAILY [facility] Saccharomyces Boulardii (Florastor) 250 mg PO DAILY [facility] Senna (Senna) 17.2 mg PO DAILY [facility] Last Admin: 06/28/18 19:55 Dose: 17.2 mg Discontinued Medications Acetaminophen (Tylenol) 975 mg PO ONETIME [facility] Stop: 06/28/18 14:00 Last Admin: 06/28/18 08:55 Dose: 975 mg Bupivacaine HCl (Marcaine 0.25%) Confirm Administered Dose 30 ml .ROUTE .STK- MED ONE Stop: 06/28/18 08:38 Last Admin: 06/28/18 11:22 Dose: 30 ml Cefazolin Sodium (Ancef) Confirm Administered Dose 2 gm .ROUTE .STK-MED ONE Stop: 06/28/18 08:38 Last Admin: 06/28/18 11:20 Dose: 2 gm Cefazolin Sodium (Ancef) Confirm Administered Dose 2 gm .ROUTE .STK-MED ONE Stop: 06/28/18 09:12 Morphine Sulfate 8 mg/Epinephrine HCl 0.3 mg/Cefuroxime Sodium 750 mg/Sodium Chloride 28.9 ml 0 mg .XX ONETIME ONE Stop: 06/28/18 10:01 Last Admin: 06/28/18 11:23 Dose: 758.3 mg Docusate Sodium (Colace) 100 mg PO BID [facility] Epinephrine HCl (Adrenalin) Confirm Administered Dose 1 mg .ROUTE .STK-MED ONE Stop: 06/28/18 05:50 Fentanyl (Sublimaze) Confirm Administered Dose 100 mcg .ROUTE .STK-MED ONE Stop: 06/28/18 09:11 Fentanyl (Sublimaze) 50 mcg IVPUSH Q5M PRN PRN Reason: Pain Stop: 06/28/18 16:00 Lactated Ringer's (Ringers, Lactated) 1,000 mls @ 125 mls/hr IV ASDIRECTED [facility] Stop: 06/28/18 23:00 Last Admin: 06/28/18 12:11 Dose: 125 mls/hr Lidocaine HCl (Xylocaine-Mpf 1%) Confirm Administered Dose 4 mls @ as directed .ROUTE .STK-MED ONE Stop: 06/28/18 10:25 Lactated Ringer's (Ringers, Lactated) Confirm Administered Dose 1,000 mls @ as directed .ROUTE .STK-MED ONE Stop: 06/28/18 10:25 Iodine (Iodine 2% Mild Tincture) Confirm Administered Dose 30 ml .ROUTE .STK- MED ONE Stop: 06/28/18 08:38 Last Admin: 06/28/18 11:16 Dose: 18 ml Lidocaine/Sodium Bicarbonate (Buffered Lidocaine 1% In Ns 8.4%) 0.25 ml IDERM ONETIME PRN PRN Reason: Prior to IV Start Stop: 06/28/18 18:00 Last Admin: 06/28/18 08:30 Dose: 0.25 ml Midazolam HCl (Versed 1 Mg/Ml) Confirm Administered Dose 2 mg .ROUTE .ST-MED ONE Stop: 06/28/18 09:11 Non-Formulary Medication (Ketoconazole) 1 dose TOP Q48H PRN PRN Reason: skin complications Ondansetron HCl (Zofran) Confirm Administered Dose 4 mg .ROUTE .ST-MED ONE Stop: 06/28/18 09:10 Oxycodone HCl (Oxycontin) 10 mg PO ONETIME [facility] Stop: 06/28/18 14:00 Last Admin: 06/28/18 08:55 Dose: 10 mg Pregabalin (Lyrica) 50 mg PO ONETIME [facility] Stop: 06/28/18 14:00 Last Admin: 06/28/18 08:55 Dose: 50 mg Propofol (Diprivan 20 Ml) Confirm Administered Dose 200 mg .ROUTE .STK-MED ONE Stop: 06/28/18 09:11 Propofol (Diprivan 20 Ml) Confirm Administered Dose 200 mg .ROUTE .STK-MED ONE Stop: 06/28/18 10:51 Propofol (Diprivan 20 Ml) Confirm Administered Dose 200 mg .ROUTE .STK-MED ONE Stop: 06/28/18 11:18 Ropivacaine (Naropin 0.5%) Confirm Administered Dose 30 ml .ROUTE .STK-MED ONE Stop: 06/28/18 05:50 Senna (Senna) 8.6 mg PO BID PRN PRN Reason: Constipation Sodium Chloride (Saline Flush) 10 ml FLUSH ASDIRECTED PRN PRN Reason: Keep Vein Open Stop: 06/28/18 18:00 Tranexamic Acid (Cyklokapron) Confirm Administered Dose 1,000 mg .ROUTE .STK- MED ONE Stop: 06/28/18 08:37 Last Admin: 06/28/18 11:28 Dose: 1,000 mg Vancomycin HCl (Vancomycin) Confirm Administered Dose 1 gm .ROUTE .STK-MED ONE Stop: 06/28/18 08:37 Last Admin: 06/28/18 11:01 Dose: 1 gm - Exam Wound/Incisions: Dressing Dry and Intact General: Alert, Cooperative, No Acute Distress Lungs: Normal Respiratory Effort Extremities: Other (NVS intact for BLE. Eleuterio's negative.) - Problem List Review Problem List Initiated/Reviewed/Updated: Yes - My Orders Last 24 Hours: Active Orders 24 hr Category Date Time Status Patient Status [ADT] Routine ADT 06/28/18 07:05 Active Antiembolic Devices [RC] Care 06/28/18 07:05 Active Insert De La O Catheter [Insert Urinary Catheter] [OM.PC] Care 06/28/18 10:15 Ordered Q24H Notify Provider [RC] Care 06/28/18 12:00 Active RT Incentive Spirometry [RC] Q1HWA Care 06/28/18 07:04 Active Ready for Discharge [RC] PER UNIT ROUTINE Care 06/29/18 07:57 Ordered Vital Signs [RC] Q4HR Care 06/28/18 07:05 Active Consult to Physician [CONS] Routine Cons 06/28/18 07:05 Active OT Evaluation and Treatment [CONS] Routine Cons 06/28/18 07:04 Active PT Evaluation and Treatment [CONS] Routine Cons 06/28/18 07:04 Active Regular Diet [DIET] Diet 06/28/18 Lunch Active Acetaminophen/oxyCODONE [Percocet 325-5 MG] Med 06/28/18 12:00 Active 1 - 2 tab PO Q4H PRN Aspirin [Ecotrin] Med 06/29/18 09:00 Active 325 mg PO BID Atenolol [Tenormin] Med 06/29/18 09:00 Active 50 mg PO DAILY Bisacodyl [Dulcolax] Med 06/28/18 12:00 Active 5 mg PO DAILY PRN Cyclobenzaprine [Flexeril] Med 06/28/18 12:00 Active 10 mg PO TID PRN Docusate Sodium [Colace] Med 06/28/18 19:15 Active 200 mg PO DAILY Famotidine [Pepcid] Med 06/28/18 21:00 Active 20 mg PO Q12H Levothyroxine [Synthroid] Med 06/29/18 06:00 Active 100 mcg PO ACBREAKFAST Lisinopril [Prinivil] Med 06/29/18 09:00 Active 20 mg PO DAILY Magnesium Hydroxide [Milk of Magnesia] Med 06/28/18 12:00 Active 30 ml PO BID PRN Morphine Med 06/28/18 12:00 Active 2 mg IVPUSH Q2H PRN Naloxone [Narcan] Med 06/28/18 12:00 Active 0.1 mg IVPUSH Q5M PRN Ondansetron [Zofran] Med 06/28/18 12:00 Active 4 mg IVPUSH Q6H PRN Rosuvastatin [Crestor] Med 06/29/18 09:00 Active 20 mg PO DAILY Saccharomyces Boulardii [Florastor] Med 06/29/18 09:00 Active 250 mg PO DAILY Sennosides [Senna] Med 06/28/18 19:15 Active 17.2 mg PO DAILY ceFAZolin [Ancef] 2 gm Med 06/28/18 17:15 Active Premix Bag 1 bag IV Q8H hydroCHLOROthiazide Med 06/29/18 09:00 Active 12.5 mg PO DAILY Antiembolic Hose [OM.PC] Per Unit Routine Oth 06/28/18 07:06 Ordered Ice Therapy [OM.PC] Per Unit Routine Oth 06/28/18 07:06 Ordered Sequential Compression Device [OM.PC] Per Unit Routine Oth 06/28/18 07:04 Ordered Resuscitation Status Routine Resus Stat 06/28/18 07:05 Ordered Medication Orders Aspirin (Ecotrin) 325 mg PO BID [facility] Atenolol (Tenormin) 50 mg PO DAILY [facility] Bisacodyl (Dulcolax) 5 mg PO DAILY PRN PRN Reason: Constipation Cyclobenzaprine HCl (Flexeril) 10 mg PO TID PRN PRN Reason: Spasms Last Admin: 06/29/18 04:55 Dose: 10 mg Admin: 06/28/18 19:55 Dose: 10 mg Docusate Sodium (Colace) 200 mg PO DAILY [facility] Last Admin: 06/28/18 19:55 Dose: 200 mg Famotidine (Pepcid) 20 mg PO Q12H [facility] Last Admin: 06/28/18 21:41 Dose: 20 mg Hydrochlorothiazide (Hydrochlorothiazide) 12.5 mg PO DAILY [facility] Cefazolin Sodium/Dextrose 2 gm (/ Premix) 50 mls @ 100 mls/hr IV Q8H [facility] Stop: 06/29/18 09:44 Last Admin: 06/29/18 00:46 Dose: 100 mls/hr Infusion: 06/28/18 17:48 Dose: 100 mls/hr Admin: 06/28/18 17:18 Dose: 100 mls/hr Levothyroxine Sodium (Synthroid) 100 mcg PO ACBREAKFAST [facility] Last Admin: 06/29/18 06:11 Dose: 100 mcg Lisinopril (Prinivil) 20 mg PO DAILY [facility] Magnesium Hydroxide (Milk Of Magnesia) 30 ml PO BID PRN PRN Reason: Constipation Morphine Sulfate (Morphine) 2 mg IVPUSH Q2H PRN PRN Reason: Breakthrough Pain Naloxone HCl (Narcan) 0.1 mg IVPUSH Q5M PRN PRN Reason: Oversedation Ondansetron HCl (Zofran) 4 mg IVPUSH Q6H PRN PRN Reason: Nausea/Vomiting Last Admin: 06/28/18 13:56 Dose: 4 mg Oxycodone/Acetaminophen (Percocet 325-5 Mg) 1 - 2 tab PO Q4H PRN PRN Reason: Pain Last Admin: 06/29/18 04:54 Dose: 1 tab Admin: 06/29/18 01:08 Dose: 2 tab Admin: 06/28/18 21:42 Dose: 1 tab Admin: 06/28/18 19:54 Dose: 1 tab Admin: 06/28/18 16:07 Dose: 1 tab Admin: 06/28/18 13:56 Dose: 1 tab Rosuvastatin Calcium (Crestor) 20 mg PO DAILY [facility] Saccharomyces Boulardii (Florastor) 250 mg PO DAILY [facility] Senna (Senna) 17.2 mg PO DAILY [facility] Last Admin: 06/28/18 19:55 Dose: 17.2 mg - Assessment Assessment (Free Text/Narrative):: POD#1 - right TKA - Plan Plan (Free Text/Narrative):: 1. Hgb 11.4. 2. 325mg ASA PO BID, frequent mobility, TEDs. 3. Discharge to home today. The pt will have the assistance of her daughters. 4. Outpatient therapy. The pt's case was discussed with Dr. Mcclendon.
--- NOTE | 2018-06-29 08:02 | PCM.DCSUM1 ---
Discharge Summary - Hospital Course Brief History: Amee is a 67 yo female who underwent right TKA with Dr. Mcclendon on 06-28-2018. The procedure was completed under spinal anesthesia with MAC. The pt tolerated the procedure well and was admitted to the Medical-Surgical Unit. Medical management was provided by the Hospitalist service. The pt's Hospital course was uneventful. The pt's Hgb on POD#1 was 11.4. On POD#1, 325mg ASA BID was initiated for VTE prophylaxis. SCDs and TEDs were also ordered. A Mepilex dressing was placed at the incision site at the time of surgery and remained clean and dry. The pt participated in P.T. and O.T. and progressed well. The pt was allowed to WBAT and used a FWW for mobility. On POD#1, the pt was deemed appropriate to discharge to home with her daughters. Diagnosis: Stroke: No - Discharge Data Discharge Date: 06/29/18 Discharge Disposition: Home, Self-Care 01 Condition: Good - Patient Summary/Data Consults: Consultations 06/28/18 07:04 OT Evaluation and Treatment [CONS] Routine PT Evaluation and Treatment [CONS] Routine 06/28/18 07:05 Consult to Physician [CONS] Routine - Patient Instructions Diet: Usual Diet as Tolerated Activity: Apply Ice, As Tolerated, Elevate Extremity, Full Weight Bearing Driving: Do Not Drive Showering/Bathing: May Shower Wound/Incision Care: Keep Operative Site/Wound Site Clean and Dry, Do NOT Change Dressing Notify Provider of: Fever, Increased Pain, Swelling and Redness, Drainage, Nausea and/or Vomiting Other/Special Instructions: Please get up and moving around EVERY HOUR while awake. This helps to prevent blood clots. Please use your walker and have help with mobility as needed. Take a short walk in your home every hour while awake. Please take 325mg Aspirin TWICE daily. The aspirin is being used for blood clot prevention and not for pain management so please do not miss a dose of the medication. You could use a medication like Zantac or Pepcid and a medication like Prilosec or Nexium to protect your stomach while you are using the aspirin. At home, please complete the exercises that you learned during the Hospital stay. Schedule for physical therapy. Use the pain medication as needed. The medication may cause drowsiness and constipation. Contact your primary care provider for instructions if you are constipated. You may use a stool softener like docusate sodium or Colace 100mg twice daily and/or a laxative like Miralax daily for constipation. Increase your water and fiber intake while you are using the pain medication. Discontinue use of the pain medication as soon as able. Please do not use other medications that may cause drowsiness (other pain medications, anxiety pills, cold medications, sleeping pills, etc) while using the prescription pain medication. Do not use alcohol while using the pain medication. Wear the TRACY hose during the day and you may remove these at night. Elevate the limb to decrease swelling. Place ice to the area often. Place a towel between your skin and the blue pad. Use the incentive spirometer often. Take deep breaths throughout the day. Please keep the dressing in place until follow-up. Notify the Clinic if the dressing becomes saturated. Increase your protein intake while you are healing. If you have diabetes, please closely monitor your blood sugars and notify your primary care provider with abnormal values. Elevated blood sugars increases the risk of infection. Call the Clinic with questions or concerns - [phone]. - Discharge Plan *PRESCRIPTION DRUG MONITORING PROGRAM REVIEWED*: No *COPY OF PRESCRIPTION DRUG MONITORING REPORT IN PATIENT [place]AL[place]A: No Prescriptions/Med Rec: Acetaminophen/oxyCODONE [Percocet 325-5 MG] 1 - 2 tab PO Q6H PRN #60 tablet PRN Reason: Pain Aspirin [Aspirin EC] 325 mg PO BID #84 tablet. Cyclobenzaprine [Flexeril] 10 mg PO TID PRN #40 tablet PRN Reason: Spasms Home Medications: Home Meds Atenolol 50 mg PO DAILY 08/26/16 [History] Docusate Sodium [Colace] 200 mg PO DAILY 08/26/16 [History] Hydrochlorothiazide 12.5 mg PO DAILY 08/26/16 [History] Lactobacillus Acidophilus [Probiotic] 1 cap PO DAILY 08/26/16 [History] Levothyroxine [Synthroid] 100 mcg PO DAILY 08/26/16 [History] Ramipril [Altace] 10 mg PO DAILY 08/26/16 [History] Ketoconazole 1 dose TOP Q48H PRN 06/27/18 [History] Rosuvastatin Calcium 20 mg PO DAILY 06/27/18 [History] Sennosides [Senna] 17.2 mg PO DAILY 06/27/18 [History] Acetaminophen/oxyCODONE [Percocet 325-5 MG] 1 - 2 tab PO Q6H PRN #60 tablet [Rx] Aspirin [Aspirin EC] 325 mg PO BID #84 tablet. 06/28/18 [Rx] Bisacodyl [Dulcolax] 5 mg PO DAILY PRN tablet 06/28/18 [Rx] Cyclobenzaprine [Flexeril] 10 mg PO TID PRN #40 tablet 06/28/18 [Rx] Famotidine [Pepcid] 20 mg PO Q12H tablet 06/28/18 [Rx] Magnesium Hydroxide [Milk of Magnesia] 30 ml PO BID PRN cup 06/28/18 [Rx] Referrals: Nanci Garay PA-C [Physician Management Professional] - - Discharge Summary/Plan Comment DC Time >30 min.: No - Patient Data Vitals - Most Recent: Last Vital Signs Temp 98.2 F 06/29/18 07:41 Pulse 73 06/29/18 07:41 Resp 13 06/29/18 07:41 BP 134/59 L 06/29/18 07:41 Pulse Ox 95 06/29/18 07:41 Weight - Most Recent: 230 lb 14.4 oz I&O - Last 24 hours: Intake & Output 06/28/18 06/29/18 06/29/18 22:59 06:59 14:59 Intake Total 800 1150 Output Total 700 Balance 800 450 Lab Results - Last 24 hrs: Laboratory Results - last 24 hr 06/28/18 06/29/18 06/29/18 Range/Units 08:20 06:15 06:15 WBC 8.22 (3.98-10.04) K/mm3 RBC 3.96 L (3.98-5.22) M/mm3 Hgb 11.4 (11.2-15.7) gm/L Hct 35.4 (34.1-44.9) % MCV 89.4 (79.4-94.8) fl MCH 28.8 (25.6-32.2) pg MCHC 32.2 (32.2-35.5) g/dl RDW Std Deviation 41.4 (36.4-46.3) fL Plt Count 196 (182-369) K/mm3 MPV 9.4 (9.4-12.3) fl APTT 32 H (24-31) SECONDS Sodium 135 L (136-145) mEq/L Potassium 3.9 (3.5-5.1) mEq/L Chloride 101 (98-107) mEq/L Carbon Dioxide 29 (21-32) mEq/L Anion Gap 8.9 (5-15) BUN 13 (7-18) mg/dL Creatinine 0.9 (0.55-1.02) mg/dL Est Cr Clr Drug Dosing 57.56 mL/min Estimated GFR (MDRD) > 60 (>60) mL/min BUN/Creatinine Ratio 14.4 (14-18) Glucose 127 H (80-115) mg/dL Calcium 9.0 (8.5-10.1) mg/dL Total Bilirubin 0.6 (0.2-1.0) mg/dL AST 17 (15-37) U/L ALT 24 (14-59) U/L Alkaline Phosphatase 66 (46-116) U/L Total Protein 6.6 (6.4-8.2) g/dl Albumin 3.3 L (3.4-5.0) g/dl Globulin 3.3 gm/dL Albumin/Globulin Ratio 1.0 (1-2) Med Orders - Current: Current Medications Aspirin (Ecotrin) 325 mg PO BID [facility] Atenolol (Tenormin) 50 mg PO DAILY [facility] Bisacodyl (Dulcolax) 5 mg PO DAILY PRN PRN Reason: Constipation Cyclobenzaprine HCl (Flexeril) 10 mg PO TID PRN PRN Reason: Spasms Last Admin: 06/29/18 04:55 Dose: 10 mg Docusate Sodium (Colace) 200 mg PO DAILY [facility] Last Admin: 06/28/18 19:55 Dose: 200 mg Famotidine (Pepcid) 20 mg PO Q12H [facility] Last Admin: 06/28/18 21:41 Dose: 20 mg Hydrochlorothiazide (Hydrochlorothiazide) 12.5 mg PO DAILY [facility] Cefazolin Sodium/Dextrose 2 gm (/ Premix) 50 mls @ 100 mls/hr IV Q8H [facility] Stop: 06/29/18 09:44 Last Admin: 06/29/18 00:46 Dose: 100 mls/hr Levothyroxine Sodium (Synthroid) 100 mcg PO ACBREAKFAST [facility] Last Admin: 06/29/18 06:11 Dose: 100 mcg Lisinopril (Prinivil) 20 mg PO DAILY [facility] Magnesium Hydroxide (Milk Of Magnesia) 30 ml PO BID PRN PRN Reason: Constipation Morphine Sulfate (Morphine) 2 mg IVPUSH Q2H PRN PRN Reason: Breakthrough Pain Naloxone HCl (Narcan) 0.1 mg IVPUSH Q5M PRN PRN Reason: Oversedation Ondansetron HCl (Zofran) 4 mg IVPUSH Q6H PRN PRN Reason: Nausea/Vomiting Last Admin: 06/28/18 13:56 Dose: 4 mg Oxycodone/Acetaminophen (Percocet 325-5 Mg) 1 - 2 tab PO Q4H PRN PRN Reason: Pain Last Admin: 06/29/18 04:54 Dose: 1 tab Rosuvastatin Calcium (Crestor) 20 mg PO DAILY [facility] Saccharomyces Boulardii (Florastor) 250 mg PO DAILY [facility] Senna (Senna) 17.2 mg PO DAILY [facility] Last Admin: 06/28/18 19:55 Dose: 17.2 mg Discontinued Medications Acetaminophen (Tylenol) 975 mg PO ONETIME [facility] Stop: 06/28/18 14:00 Last Admin: 06/28/18 08:55 Dose: 975 mg Bupivacaine HCl (Marcaine 0.25%) Confirm Administered Dose 30 ml .ROUTE .STK- MED ONE Stop: 06/28/18 08:38 Last Admin: 06/28/18 11:22 Dose: 30 ml Cefazolin Sodium (Ancef) Confirm Administered Dose 2 gm .ROUTE .STK-MED ONE Stop: 06/28/18 08:38 Last Admin: 06/28/18 11:20 Dose: 2 gm Cefazolin Sodium (Ancef) Confirm Administered Dose 2 gm .ROUTE .STK-MED ONE Stop: 06/28/18 09:12 Morphine Sulfate 8 mg/Epinephrine HCl 0.3 mg/Cefuroxime Sodium 750 mg/Sodium Chloride 28.9 ml 0 mg .XX ONETIME ONE Stop: 06/28/18 10:01 Last Admin: 06/28/18 11:23 Dose: 758.3 mg Docusate Sodium (Colace) 100 mg PO BID [facility] Epinephrine HCl (Adrenalin) Confirm Administered Dose 1 mg .ROUTE .STK-MED ONE Stop: 06/28/18 05:50 Fentanyl (Sublimaze) Confirm Administered Dose 100 mcg .ROUTE .STK-MED ONE Stop: 06/28/18 09:11 Fentanyl (Sublimaze) 50 mcg IVPUSH Q5M PRN PRN Reason: Pain Stop: 06/28/18 16:00 Lactated Ringer's (Ringers, Lactated) 1,000 mls @ 125 mls/hr IV ASDIRECTED [facility] Stop: 06/28/18 23:00 Last Admin: 06/28/18 12:11 Dose: 125 mls/hr Lidocaine HCl (Xylocaine-Mpf 1%) Confirm Administered Dose 4 mls @ as directed .ROUTE .STK-MED ONE Stop: 06/28/18 10:25 Lactated Ringer's (Ringers, Lactated) Confirm Administered Dose 1,000 mls @ as directed .ROUTE .STK-MED ONE Stop: 06/28/18 10:25 Iodine (Iodine 2% Mild Tincture) Confirm Administered Dose 30 ml .ROUTE .STK- MED ONE Stop: 06/28/18 08:38 Last Admin: 06/28/18 11:16 Dose: 18 ml Lidocaine/Sodium Bicarbonate (Buffered Lidocaine 1% In Ns 8.4%) 0.25 ml IDERM ONETIME PRN PRN Reason: Prior to IV Start Stop: 06/28/18 18:00 Last Admin: 06/28/18 08:30 Dose: 0.25 ml Midazolam HCl (Versed 1 Mg/Ml) Confirm Administered Dose 2 mg .ROUTE .STK-MED ONE Stop: 06/28/18 09:11 Non-Formulary Medication (Ketoconazole) 1 dose TOP Q48H PRN PRN Reason: skin complications Ondansetron HCl (Zofran) Confirm Administered Dose 4 mg .ROUTE .STK-MED ONE Stop: 06/28/18 09:10 Oxycodone HCl (Oxycontin) 10 mg PO ONETIME [facility] Stop: 06/28/18 14:00 Last Admin: 06/28/18 08:55 Dose: 10 mg Pregabalin (Lyrica) 50 mg PO ONETIME [facility] Stop: 06/28/18 14:00 Last Admin: 06/28/18 08:55 Dose: 50 mg Propofol (Diprivan 20 Ml) Confirm Administered Dose 200 mg .ROUTE .STK-MED ONE Stop: 06/28/18 09:11 Propofol (Diprivan 20 Ml) Confirm Administered Dose 200 mg .ROUTE .STK-MED ONE Stop: 06/28/18 10:51 Propofol (Diprivan 20 Ml) Confirm Administered Dose 200 mg .ROUTE .STK-MED ONE Stop: 06/28/18 11:18 Ropivacaine (Naropin 0.5%) Confirm Administered Dose 30 ml .ROUTE .STK-MED ONE Stop: 06/28/18 05:50 Senna (Senna) 8.6 mg PO BID PRN PRN Reason: Constipation Sodium Chloride (Saline Flush) 10 ml FLUSH ASDIRECTED PRN PRN Reason: Keep Vein Open Stop: 06/28/18 18:00 Tranexamic Acid (Cyklokapron) Confirm Administered Dose 1,000 mg .ROUTE .STK- MED ONE Stop: 06/28/18 08:37 Last Admin: 06/28/18 11:28 Dose: 1,000 mg Vancomycin HCl (Vancomycin) Confirm Administered Dose 1 gm .ROUTE .STK-MED ONE Stop: 06/28/18 08:37 Last Admin: 06/28/18 11:01 Dose: 1 gm
--- NOTE | 2018-06-29 08:51 | PCM48HPAN ---
Post Anesthesia Note - EVALUATION WITHIN 48HRS OF ANESTHETIC Vital Signs in Normal Range: Yes Patient Participated in Evaluation: Yes Respiratory Function Stable: Yes Airway Patent: Yes Cardiovascular Function Stable: Yes Hydration Status Stable: Yes Pain Control Satisfactory: Yes Nausea and Vomiting Control Satisfactory: Yes Mental Status Recovered: Yes Pulse Rate: 73 Resp Rate: 13 Temperature: 36.8 C Blood Pressure: 134/59 - COMMENTS/OBSERVATIONS Free Text/Narrative:: no anesthesia complications noted
[2018-06-29] MEDS ORDERED: Rosuvastatin 10 MG Tab PO SCH (09:00)
[2018-06-29] MEDS ORDERED: Lisinopril 20 MG Tab PO SCH (09:00)
[2018-06-29] MEDS ORDERED: Atenolol 50 MG Tab PO SCH (09:00)
[2018-06-29] MEDS ORDERED: Aspirin 325 MG Tab.EC PO SCH (09:00)
[2018-06-29] MEDS ORDERED: Hydrochlorothiazide 12.5 MG Cap PO SCH (09:00)
[2018-06-29] MEDS ORDERED: Saccharomyces Boulardii (Probiotic) 250 MG Cap PO SCH (09:00)
[2018-06-29] MEDS: Docusate Sodium 100 MG Cap PO SCH (09:03)
[2018-06-29] MEDS: Famotidine 20 MG Tab PO SCH (09:57)
[2018-06-29] MEDS: Sennosides 8.6 MG Tab PO SCH (09:57)
[2018-06-29 10:01] VITALS: BP 127/59
--- NOTE | 2018-07-01 11:21 | PCM.OPNOTE ---
- General Post-Op/Procedure Note Date of Surgery/Procedure: 06/28/18 Operative Procedure(s): right total knee arthoplasty Pre Op Diagnosis: right knee osteoarthrosis Post-Op Diagnosis: Same Anesthesia Technique: Local, MAC, Spinal Primary Surgeon: Agustín Mcclendon Anesthesia Provider: Harry Delvalle Delivery Consultant: Nanci Garay Delivery Consultant: Mariela Olivo EBFaviola in mLs: 490 Complications: None Condition: Good Free Text/Narrative:: size 5 femur size 4 tibia 9mm 32x10
--- NOTE | 2018-07-01 11:48 | OR ---
DATE OF OPERATION: 06/28/2018 SURGEON: Agustín Mcclendon MD OPERATION PERFORMED: Right total knee arthroplasty. PREOPERATIVE DIAGNOSIS: Right knee osteoarthrosis. POSTOPERATIVE DIAGNOSIS: Right knee osteoarthrosis. ANESTHESIA: Local MAC with spinal. ANESTHESIA PROVIDER: Harry Delvalle CRNA METHODS EXAMINER: Mariela Olivo LPN. ESTIMATED BLOOD LOSS: 490 mL. COMPLICATIONS: None. CONDITION: Stable. IMPLANTS: 1. Sharon size 5 press-fit CR femur. 2. [place] size 4 press-fit tibial base plate. 3. Sharon size 4, 9 mm CS polyethylene insert. 4. [place] size 32 x 10 mm press fit asymmetric patella. DESCRIPTION OF PROCEDURE: The patient was identified in the preop holding area. Proper site was marked and identified by the surgeon. The patient was taken back to the operating theater. After adequate anesthesia, the patient's right lower extremity had a nonsterile tourniquet applied and it was sterilely prepped and draped in the usual sterile fashion. OR time-out was performed. The patient received 2 g IV Ancef. At this time, the right lower extremity was exsanguinated. Tourniquet was insufflated to 300 mmHg. Standard medial parapatellar incision was made. Medial parapatellar arthrotomy was created. Deep fibers of the MCL were raised and anterior fat pad was resected. At this time, attention was turned to the patella. Patella measured 24, it was resected to a 14 for 32 x 10 mm patella. Drill holes were then drilled and found to be in adequate position. The drill was then drilled in the distal femur and the intramedullary distal femoral cutting guide was then placed. 8 mm was resected off the distal femur and was found to be an adequate resection. Sizing guide was placed. It was found to be a size 5 press-fit CR femur that was shown on the implant record at the beginning of this dictation. The drill holes were drilled for the epicondylar axis using Whitesides line and epicondyles as reference. At this time, the 4-in - 1 cutting block was placed. An anterior posterior and anterior and posterior chamfer cuts were then completed. Attention was turned to the tibia. The posterior medial lateral retractors were placed. The extramedullary tibial guide was placed. It was placed in the old footprint of the ACL. It was aligned with the center of the ankle and 0 degrees of slope, 9 mm was then resected off the unaffected side. There was found to be an acceptable reduction. At this time, posterior osteophytes were removed along with medial and lateral meniscus. A trial implant was placed with a correct sized tibia that was mentioned at the beginning of the dictation. A [place] size 4, 9 mm CS polyethylene insert was then placed. The patient's knee was brought through range of motion. The patella was tracking centrally and was stable to varus and valgus stress. Alignment was found to be roughly at 0 degrees. The tibia was stamped and drilled in proper rotation. The universal tibial base plate was impacted in place. Next, the [place] size 4 press-fit CR femur impacted into place and the [place] size 4, 9 mm CS polyethylene insert was placed. The patient's knee was brought into full extension. The patella was then press-fit in place at this time. Tourniquet was deflated. One liter dilute Betadine solution was irrigated through the knee along with 3 L of pulse lavage irrigation with Ancef. Periarticular injection was then completed. The patient's knee was brought through a range of motion. Knee was found to be stable to varus valgus stress, the patella was tracking centrally with full range of motion. At this time, a #2 barbed suture was used for closure of the medial parapatellar arthrotomy. Topical tranexamic acid was placed. 2-0 Vicryl was used subcutaneously, Prineo was used for the skin. The patient tolerated the procedure well and was sent to the PACU in stable condition. BERNADETTE /[id number] ALL
== END 2018-06-29 10:50 | disposition home or self-care (01) | DRG 470 ==
LOC: JD.MS 07:45 → EDSTATUS 09:15
PROVIDERS: ADMIT Orthopaedic Surgery; ATTEND Orthopaedic Surgery
PROC: 0SRC0JA Replacement of Right Knee Joint with Synthetic Substitute, Uncemented, Open Approach (ICD-10-PCS; principal; 2018-06-28)
DX: M17.11 Unilateral primary osteoarthritis, right knee (principal); I10 Essential (primary) hypertension; M25.761 Osteophyte, right knee; E78.2 Mixed hyperlipidemia; E03.9 Hypothyroidism, unspecified; E78.00 Pure hypercholesterolemia, unspecified; N39.3 Stress incontinence (female) (male); H54.7 Unspecified visual loss; K57.90 Diverticulosis of intestine, part unspecified, without perforation or abscess without bleeding; E66.3 Overweight; Z68.36 Body mass index [BMI] 36.0-36.9, adult; Z87.440 Personal history of urinary (tract) infections; Z87.442 Personal history of urinary calculi; Z88.2 Allergy status to sulfonamides; Z88.8 Allergy status to other drugs, medicaments and biological substances; Z86.010 Personal history of colon polyps; Z79.82 Long term (current) use of aspirin; Z79.899 Other long term (current) drug therapy; Z90.710 Acquired absence of both cervix and uterus; Z96.652 Presence of left artificial knee joint
CPT/HCPCS: 01402; 36415; 73560-26-RT; 73560-RT; 80053; 85027; 85730; 87641; 97110-GP; 97116-GP; 97161-GP; 97165-GO; 97535-GO; A9270-GY; C1776; J0171; J0690; J0697; J2001; J2250; J2270; J2405; J2704; J2795; J3010; J3370; J3490; J7120